=== PATIENT | male | born 1980 | race Caucasian/White ===

== ENCOUNTER 2024-05-06 21:22 | Emergency (ER) | payer SELFPAY ==
[2024-05-06 21:27] VITALS: BP 106/62; PULSE 114; RESP 16; TEMP 37.1; O2SAT 98; BMI 21.1
[2024-05-06 21:35] VITALS: BP 100/64; PULSE 113; RESP 17; O2SAT 98
[2024-05-06 21:38] LABS: Glucose Point of Care 111 mg/dL (70-110)
--- NOTE | 2024-05-06 21:39 | XRR_ITS ---
PROCEDURE INFORMATION: Exam: XR Chest Exam date and time: 05/06/2024 9:43 PM Age: 43 years old Clinical indication: Other: Weakness TECHNIQUE: Imaging protocol: Radiologic exam of the chest. Views: 1 view. COMPARISON: No relevant prior studies available. FINDINGS: Lungs: The lungs are adequately expanded. No focal consolidations or pulmonary edema. Pleural spaces: No pleural effusions or pneumothorax. Heart/Mediastinum: No cardiomegaly. Bones/joints: No acute fractures. XR/XR chest 1V portable [id number] IMPRESSION: No acute pulmonary disease.
--- NOTE | 2024-05-06 21:55 | ECG_ITS ---
[facility] Test Date: 2024-05-06 Pat Name: Matt Penny Department: Room: Gender: Male [employer]: : 1980 Requested By: Omar Wall Order Number: [id number] Sanford MD: Nelson Mi M.D. Measurements Intervals [place] Rate: 113 P: 59 NH: 157 QRS: 49 QRSD: 89 T: 50 QT: 357 QTc: 490 Interpretive Statements SINUS TACHYCARDIA WITH OCCASIONAL SUPRAVENTRICULAR PREMATURE COMPLEXES POSSIBLE LEFT ATRIAL ENLARGEMENT [-0.1mV P-WAVE IN V1/V2] POSSIBLE LEFT VENTRICULAR HYPERTROPHY [VOLTAGE CRITERIA PLUS LAE OR QRS WIDENING] No previous ECG available for comparison Electronically Signed On 05-07-2024 9:05:47 CDT by Nelson Mi M.D. [email or web address]
[2024-05-06 22:00] VITALS: BP 102/58; PULSE 113; RESP 15; O2SAT 100
--- NOTE | 2024-05-06 22:02 | ED_ITS ---
HPI - Weakness 2 General: Chief complaint: Weakness Stated complaint: Lethargic Time Seen by Provider: 05/06/24 21:39 Source: patient and family History of Present Illness: Patient is a 43-year-old male who has a history of longstanding alcoholism and will frequently take more than 20 shots of fireball daily who presents to the ER with complaints of jaundice, weakness, and some confusion noted per the significant other today. The significant other states she has been with the patient for the last 3 years and he is a daily drinker but has been trying to cut back and she does not believe he is drink at all today but he did drink yesterday. He recently completed a Librium taper about a month ago trying to wean off of alcohol but is continue to have the shakes and was placed on propranolol. Patient is continue to drink intermittently. He was noted to have jaundice today by the girlfriend and having acute confusion. He has not ever had any known diagnosis of cirrhosis or liver failure. He denies any significant abdominal pain. No fevers. MD Complaint: generalized weakness Duration: constant Location: generalized Associated symptoms: Reports confusion; Denies chills, fever(s) or nausea Review of Systems 2 Const: Denies: fever(s) or chills Resp: Denies: dyspnea GI: Denies: abdominal pain or nausea Skin/Breast: Reports: jaundice; Denies: rash Neuro: Reports: confusion Physical Exam 2 Const: COMMON NORMALS: no acute distress, average body habitus and alert O THER: Acutely ill-appearing 43-year-old male with jaundice HENMT: COMMON NORMALS: normocephalic HEAD & SCALP: normocephalic Eye: COMMON NORMALS: EOMs intact bilaterally, negative for conjunctivae normal and negative for no scleral icterus CONJUNCTIVA: No conjunctivae normal S CLERA: scleral abnormal (Icteric sclera bilaterally) Chest: COMMONS NORMALS: normal inspection of the chest Resp: COMMON NORMALS: normal respiratory effort, No retractions, No use of accessory muscles and clear to auscultation bilaterally EFFORT & INSPECTION: Yes able to speak in complete sentences AUSCULTATION: clear to auscultation bilaterally Cardio: COMMON NORMALS: Peripheral pulses 2+ throughout PERIPHERAL PULSES: Peripheral pulses 2+ throughout GI: COMMON NORMALS: Soft to palpation and non-tender PALPATION: Yes Soft to palpation OTHER: Mildly distended abdomen with hepatomegaly noted. No significant tenderness. No guarding or rebound. Extremity: COMMON NORMALS: normal to inspection, full ROM and capillary refill normal Neuro: COMMON NORMALS: moves all extremities and no focal motor deficits S ENSORIUM/ORIENTATION: Yes alert OTHER: Patient has some occasional inappropriate responses to questions with notable confusion Skin: GENERAL SKIN EXAM: jaundice Course 2 ED course: 43-year-old male who presents with what appears to be acute liver failure and a GI bleed. Guaiac exam shows melanotic stool with grossly positive Hemoccult. I consulted the hospitalist who requested me speak with Dr. Burgess with general surgery to review the case prior to admission. Dr. Burgess felt the patient would benefit from transfer to higher level of care with gastroenterology availability given his high likelihood of potential varices. Spoke with the patient and his significant other and they requested we reach out to [facility] or [facility]. Vital Signs: Vital signs: Vital Signs Temperature 98.8 F 05/06/24 21:27 Pulse Rate 117 H 05/07/24 00:30 Respiratory Rate 21 H 05/07/24 00:30 Blood Pressure 99/49 05/07/24 00:30 Pulse Oximetry 97 05/07/24 00:30 Oxygen Delivery Me thod Room Air 05/06/24 21:27 MDM - Weakness Medical Decision Making Patient is an acutely ill-appearing 43-year-old male who presents with weakness, confusion, and acute jaundice. Patient has some mild hepatic encephalopathy and an ammonia greater than 90. He has anemia with a hemoglobin of 7.6 and thrombocytopenia with platelets of 52. He has a significantly elevated lactic acid greater than 9. His MELD score is 34. He was given 1 L of normal saline and continued on 60 mL/h of normal saline. He was typed and crossed and provided 1 unit of packed red blood cells for anemia. He has a melanotic stool on my exam that was grossly guaiac positive. He was given 1 g IV Rocephin and given IV Protonix and started on Protonix drip. He was given lactulose by mouth. We did speak with [facility] who stated that he would have several day wait. [facility] was contacted and has been accepted to the ICU by Dr. Richmond. Patient and significant other are comfortable with this plan and in agreement. Lab Data I reviewed the patient's lab results. 05/06/24 22:00 05/06/24 22:00 Radiology Impressions Chest X-Ray 05/06/24 21:39 IMPRESSION: No acute pulmonary disease. Abdomen/Pelvis CT 05/06/24 22:38 IMPRESSION: 1. Markedly abnormal and diffusely hypoattenuating hepatic parenchyma likely secondary to hepatocellular disease and steatosis. 2. Moderate volume ascites. 3. Mucosal thickening of the proximal colon which may be reactive in etiology. Laboratory Results WBC 5.51 10^3/uL (3.29-11.43) 05/06/24 22:00 Corrected WBC 5.1 10^3/cmm (4.8-10.8) 05/06/24 22:00 RBC 1.78 10^6/uL (3.85-5.65) L 05/06/24 22:00 Hgb 7.60 g/dL (11.27-16.99) L 05/06/24 22:00 Hct 19.5 % (37-53) L* 05/06/24 22:00 MCV 109.6 fl (82-101) H 05/06/24 22:00 MCH 42.7 pg (27-33) H 05/06/24 22:00 MCHC 39.0 g/dL (30-55) 05/06/24 22:00 RDW 18.3 % (12.1-15.1) H 05/06/24 22:00 Plt Count 52 10^3/cmm (157-399) L 05/06/24 22:00 MPV 14.0 fL (7.4-10.4) H 05/06/24 22:00 Lymph % (Auto) Not Reportable 05/06/24 22:00 [place] % (Auto) Not Reportable 05/06/24 22:00 Lymph # (Auto) Not Reportable 05/06/24 22:00 [place] # (Auto) Not Reportable 05/06/24 22:00 Total Counted 100 (0-100) 05/06/24 22:00 Atypical Lymphs % Not Reportable 05/06/24 22:00 Absolute Neutrophils 4.0 10^3/cmm (1.4-6.5) 05/06/24 22:00 Segmented Neutrophils 72 % 05/06/24 22:00 Abs Segm Neuts (Man) 4.0 10/cmm (1.6-7.1) 05/06/24 22:00 Band Neutrophils 0.0 % 05/06/24 22:00 Abs Band Neuts (Man) 0.0 10^3/cmm (0.0-1.2) 05/06/24 22:00 Lymphocytes (Manual) 18 % 05/06/24 22:00 Monocytes (Manual) 1.0 % 05/06/24 22:00 Absolute Monocytes 0.1 10^3/cmm (0.1-0.6) 05/06/24 22:00 Eosinophils (Manual) 0 % 05/06/24 22:00 Absolute Eosinophils 0.0 10^3/cmm (0.0-0.7) 05/06/24 22:00 Basophils (Manual) 0.0 % 05/06/24 22:00 Absolute Basophils 0.0 10^3/cmm (0.0-0.2) 05/06/24 22:00 Nucleated RBCs 9.0 /100WBC (0-1) H 05/06/24 22:00 Hypersegmented Polys 1+ 05/06/24 22:00 Platelet Estimate Decreased (Normal) 05/06/24 22:00 Anisocytosis 2+ H 05/06/24 22:00 Macrocytosis 2+ H 05/06/24 22:00 Target Cells 3+ H 05/06/24 22:00 Stomatocytes Trace 05/06/24 22:00 PT 21.40 SECONDS (12.1-14.9) H 05/06/24 22:00 INR 1.79 (0.8-1.2) H 05/06/24 22:00 APTT 49.2 SECONDS (23.9-36.7) H 05/06/24 22:00 Sodium 116 mmol/L (136-145) L* 05/06/24 22:00 Potassium 4.7 mmol/L (3.5-5.1) 05/06/24 22:00 Chloride 73 mmol/L (98-107) L 05/06/24 22:00 Carbon Dioxide 22 mmol/L (22-29) 05/06/24 22:00 Anion Gap 25.7 (5-19) H 05/06/24 22:00 BUN 70 mg/dL (6-20) H 05/06/24 22:00 Creatinine 2.1 mg/dL (0.7-1.2) H 05/06/24 22:00 GFR Calculation 35.0 mL/min (90-130) L 05/06/24 22:00 Glucose 86 mg/dL (65-115) 05/06/24 22:00 POC Glucose 111 mg/dL (70-110) H 05/06/24 21:34 Calculated Osmolality 262 mOsm/kg (285-295) L 05/06/24 22:00 Lactic Acid 9.7 mmol/L (0.5-2.2) H* 05/06/24 22:00 Calcium 7.9 mg/dL (8.5-10.5) L 05/06/24 22:00 Phosphorus 3.9 mg/dL (2.5-4.5) 05/06/24 22:00 Magnesium 2.0 mg/dL (1.7-2.3) 05/06/24 22:00 Total Bilirubin 10.1 mg/dL (0.15-1.2) H* 05/06/24 22:00 AST 204 U/L (0-40) H 05/06/24 22:00 ALT 34 U/L (0-41) 05/06/24 22:00 Alkaline Phosphatase 270 U/L (40-130) H 05/06/24 22:00 Ammonia 92 umol/L (16-60) H 05/06/24 22:00 Total Protein 6.9 g/dL (6.6-8.7) 05/06/24 22:00 Albumin 2.4 g/dL (3.5-5.2) L 05/06/24 22:00 Globulin 4.5 g/dL (1.3-4.6) 05/06/24 22:00 Lipase 46 U/L (13-60) 05/06/24 22:00 Ethyl Alcohol < 10 mg/dL (0-10) 05/06/24 22:00 Blood Type A Positive 05/06/24 23:47 Rho(D) Type Rh positive 05/06/24 23:47 Antibody Screen Negative 05/06/24 23:47 Crossmatch See Detail 05/06/24 23:47 All radiology interpretation(s) finalized by discharge EKG Data EKG 1: Interpretation: Sinus tachycardia, rate of 113 bpm, no ischemic ST elevations, mild prolonged QT interval at 424 ms. Discharge Plan Discharge Patient Disposition: Xfer Short-Term Hosp Clinical Impression: Acute hepatic failure, Anemia, Acute GI bleeding, Thrombocytopenia, Acidosis, lactic, Acute hepatic encephalopathy, Acute hyponatremia, Hyperbilirubinemia Condition: Critical Discharge Orders: Transfer Out of Facility (Order); Ordered 05/07/24 Ordered By: Omar Wall Referrals: Red Abarca MD [Primary Care Provider] - Coding Level of Care Code ED Gut Cleaner for Peter Vanessa
[2024-05-06 22:28] LABS: INR 1.79 (0.8-1.2)
[2024-05-06 22:29] LABS: Partial Thromboplastin Time 49.2 SECONDS (23.9-36.7)
[2024-05-06 22:30] VITALS: BP 104/62; PULSE 119; RESP 21; O2SAT 100
[2024-05-06 22:31] LABS: Ammonia 92 umol/L (16-60)
[2024-05-06 22:32] LABS: Alanine Aminotransferase 34 U/L (0-41); Albumin Level 2.4 g/dL (3.5-5.2); Alkaline Phosphatase 270 U/L (40-130); Anion Gap 25.7 (5-19); Aspartate Amino Transferase 204 U/L (0-40); Blood Urea Nitrogen 70 mg/dL (6-20); Calcium 7.9 mg/dL (8.5-10.5); Carbon Dioxide 22 mmol/L (22-29); Chloride 73 mmol/L (98-107); Globulin 4.5 g/dL (1.3-4.6); Glucose 86 mg/dL (65-115); Lipase 46 U/L (13-60); Osmolality Calculated 262 mOsm/kg (285-295); Phosphorus 3.9 mg/dL (2.5-4.5); Potassium 4.7 mmol/L (3.5-5.1); Total Protein 6.9 g/dL (6.6-8.7)
[2024-05-06 22:36] LABS: Alcohol Level < 10 mg/dL (0-10)
[2024-05-06 22:37] LABS: Lactic Sepsis W/Reflex 9.7 mmol/L (0.5-2.2); Sodium 116 mmol/L (136-145); Total Bilirubin 10.1 mg/dL (0.15-1.2)
--- NOTE | 2024-05-06 22:38 | CTR_ITS ---
PROCEDURE INFORMATION: Exam: CT Abdomen And Pelvis Without Contrast Exam date and time: 05/06/2024 10:46 PM Age: 43 years old Clinical indication: Abdominal pain; Additional info: Abdominal pain, jaundice, HX of ETOH abuse TECHNIQUE: Imaging protocol: Computed tomography of the abdomen and pelvis without contrast. Radiation optimization: All CT scans at this facility use at least one of these dose optimization techniques: automated exposure control; mA and/or kV adjustment per patient size (includes targeted exams where dose is matched to clinical indication); or iterative reconstruction. COMPARISON: CR (CHEST, ) 05/06/2024 9:43 PM RADIATION DOSE METRICS: Total DLP (mGy-cm): 1073.06 FINDINGS: Diaphragm: Small hiatal hernia. Liver: Diffusely hypoattenuating hepatic parenchyma likely secondary to hepatocellular disease and steatosis. Geographic heterogenicity likely secondary to perfusion differences. Gallbladder and biliary ducts: Normal. No calcified stones. No ductal dilation. Pancreas: Normal. No ductal dilation. Spleen: Normal. No splenomegaly. Adrenal glands: Normal. No mass. Kidneys and ureters: Normal. No hydronephrosis. Stomach and bowel: Mucosal thickening of the proximal colon which may be reactive in etiology. Appendix: No evidence of appendicitis. Intraperitoneal space: Moderate volume ascites. Vasculature: Mild atherosclerotic calcifications. Lymph nodes: Unremarkable. No enlarged lymph nodes. Urinary bladder: Unremarkable as visualized. Reproductive: Unremarkable as visualized. Bones/joints: Chronic appearing deformity of the superior endplate of L2. Soft tissues: Unremarkable. CT/CT abdomen pelvis con [id number] IMPRESSION: 1. Markedly abnormal and diffusely hypoattenuating hepatic parenchyma likely secondary to hepatocellular disease and steatosis. 2. Moderate volume ascites. 3. Mucosal thickening of the proximal colon which may be reactive in etiology.
[2024-05-06 23:00] VITALS: BP 109/50; PULSE 117; RESP 19; O2SAT 99
[2024-05-06 23:00] LABS: Mean Corpuscular Hemoglobin 42.7 pg (27-33); Mean Corpuscular Volume 109.6 fl (82-101); Platelet Count 52 10^3/cmm (157-399); Red Blood Count 1.78 10^6/uL (3.85-5.65); Red Cell Distribution Width 18.3 % (12.1-15.1); White Blood Count 5.51 10^3/uL (3.29-11.43)
[2024-05-06 23:19] LABS: Slide Review Slide Review Perform
[2024-05-06 23:20] LABS: Hematocrit 19.5 % (37-53)
[2024-05-06 23:22] LABS: Eosinophils 0 %; Lymphocytes 18 %; Monocytes Absolute 0.1 10^3/cmm (0.1-0.6); Total Cells Counted 100 (0-100)
[2024-05-06 23:23] LABS: Corrected White Blood Count 5.1 10^3/cmm (4.8-10.8); Platelet Estimate Decreased (Normal)
[2024-05-06 23:25] LABS: Macrocytosis 2+; Stomatocytes Trace; Target Cells 3+
[2024-05-06 23:26] LABS: Anisocytosis 2+; Hypersegmented Polys 1+
[2024-05-06 23:28] LABS: Segmented Neutrophils 72 %
[2024-05-06 23:30] VITALS: BP 100/61; PULSE 118; RESP 23; O2SAT 92
[2024-05-06 23:58] LABS: Reflex Lactate Order REFLEX LACTIC ORDERD
[2024-05-07] VITALS (15 sets, daily range): BP systolic 90–119; BP diastolic 40–76; PULSE 83–129; RESP 17–25; TEMP 37.2–37.7; O2SAT 96–100
[2024-05-07] MEDS: sodium chloride 0.9% 500 ML IV (00:04)
[2024-05-07] MEDS: pantoprazole 40 mg SDV 80 MG IVP (00:04)
[2024-05-07] MEDS: lactulose oral liq 20 gm/30 mL UDC 30 GM PO (00:05)
[2024-05-07] MEDS: pantoprazole 40 MG in sodium chloride 0.9% (plus) 100 ML 20 MG IV ×2 (00:39→05:11)
[2024-05-07 01:25] LABS: Lactic Acid level (Lactate) 11.2 mmol/L (0.5-2.2)
[2024-05-07] MEDS: sodium chloride 0.9% 1,000 ML 60 ML IV (01:26)
[2024-05-07 02:02] LABS: Charge for UA Resulting for Rev; Urine Color Other (Yellow)
[2024-05-07 02:03] LABS: Urine Appearance Slightly Cloudy (CLEAR)
[2024-05-07 02:08] LABS: Add Urine Culture? No; Bacteria Urine 1+ /hpf; Mucus Urine 2+ /hpf; RBC Urine 0-4 /hpf (0-2)
[2024-05-07] MEDS: nicotine 21 mg Patch 1 PATCH TRANSDERMA (02:47)
[2024-05-07 05:58] LABS: Blood Urea Nitrogen 68 mg/dL (6-20); Calcium 7.4 mg/dL (8.5-10.5); Carbon Dioxide 18 mmol/L (22-29); Chloride 79 mmol/L (98-107); Creatinine Clr Calc Pharmacy 40.7053; Glomerular Filtration Rate 27.3 mL/min (90-130); Glucose 92 mg/dL (65-115); Osmolality Calculated 275 mOsm/kg (285-295); Sodium 123 mmol/L (136-145)
[2024-05-07] MEDS: LORazepam 2 mg Tablet PO (08:16)
== END 2024-05-07 08:27 | disposition short-term general hospital (02) ==
PROVIDERS: Emergency Provider Student in an Organized Health Care Education/Training Program; PCP Family Medicine
DX: K72.00 Acute and subacute hepatic failure without coma (principal); D64.9 Anemia, unspecified; K92.2 Gastrointestinal hemorrhage, unspecified; D69.6 Thrombocytopenia, unspecified; E87.20 Acidosis, unspecified; K76.82 Hepatic encephalopathy; E87.1 Hypo-osmolality and hyponatremia; E80.6 Other disorders of bilirubin metabolism; R00.0 Tachycardia, unspecified
CPT/HCPCS: 36415; 36416; 36430; 71045; 74176; 80048; 80053; 80307; 81003; 81015; 82140; 82962; 83605; 83690; 83735; 84100; 85007; 85018; 85025; 85610; 85730; 86850; 86900; 86920; 93005; 96365; 96366; 99285; J0696; J2470; J7030; J7040; P9016